=== PATIENT | male | born 1950 | race Caucasian/White ===

== ENCOUNTER → 2016-08-21 | Outpatient (CLI) | payer OTHER ==
[~2016-08-21] MED LIST: DILT60CA PO; LOSA1TAB19 PO; METF500T4 PO; METO-270 PO; SERT25TA PO
[2016-08-22 16:52] LABS: ALBUMIN 4.2 g/dL (3.4-5.0); TOTAL PROTEIN 6.8 g/dL (6.4-8.5)
== END ==
LOC: LAB 13:22
PROVIDERS: ATTEND Nurse Practitioner Family
DX: E78.2 Mixed hyperlipidemia (principal); I10 Essential (primary) hypertension; E11.9 Type 2 diabetes mellitus without complications
CPT/HCPCS: 36415; 80061; 80076; 83036